=== PATIENT | female | born 1970 | race Caucasian/White ===

== ENCOUNTER 2018-04-19 06:28 | Emergency (ER) | payer BC ==
[2018-04-19 06:59] LABS: BILIRUBIN,URINE NEGATIVE (NEG); CLARITY,URINE CLEAR; COLOR,URINE YELLOW; GLUCOSE,URINE NEGATIVE (NEG); NITRITE,URINE NEGATIVE (NEG); PROTEIN,URINE NEGATIVE (NEG-TRACE); UROBILINOGEN,URINE 0.2 mg/dL (0.2 mg/dL)
[2018-04-19] MEDS: IV NORMAL SALINE 1000ML BAG 1,000 ML IV (07:10)
[2018-04-19] MEDS: KETOROLAC 30 MG/ML INJ. IV (07:10)
[2018-04-19] MEDS: METOCLOPRAMIDE HCL 10 MG/2 ML VIAL. IV (07:10)
[2018-04-19 07:14] LABS: BACTERIA,URINE FEW /HPF (0-FEW); RBC,URINE >40 /HPF (0-2); SQUAMOUS EPITHELIAL CELL,UR FEW /LPF
[2018-04-19 07:17] LABS: ADD MAN DIFF? NO
[2018-04-19 07:18] LABS: BASO % 0 % (0-3); EOS # 0.1 x10^3/uL (0.0-0.7); EOS % 3 % (0-3); HEMATOCRIT 39.3 % (36.0-47.0); HEMOGLOBIN 13.5 g/dL (12.0-15.5); LYMPH # 0.8 x10^3/uL (1.0-4.8); LYMPH % 23 % (24-48); MEAN CORPUSCULAR HEMOGLOBIN 31 pg (25-35); MEAN CORPUSCULAR HGB CONC 34 g/dL (31-37); MEAN CORPUSCULAR VOLUME 89 fL (79-100); MONO # 0.3 x10^3/uL (0.0-1.1); MONO % 8 % (0-9); NEUT # 2.4 x10^3uL (1.8-7.7); NEUT % 67 % (31-73); PLATELET COUNT 99 x10^3/uL (140-400); RED BLOOD COUNT 4.41 x10^6/uL (3.50-5.40); RED CELL DISTRIBUTION WIDTH 14.3 % (11.5-14.5); WHITE BLOOD COUNT 3.5 x10^3/uL (4.0-11.0)
[2018-04-19 07:26] LABS: ANION GAP 9 (6-14); BLOOD UREA NITROGEN 17 mg/dL (7-20); BUN/CREATININE RATIO 21 (6-20); CALCIUM 8.9 mg/dL (8.5-10.1); CARBON DIOXIDE 29 mmol/L (21-32); CHLORIDE 104 mmol/L (98-107); CREATININE 0.8 mg/dL (0.6-1.0); GFR 77.6; GLUCOSE 121 mg/dL (70-99); POTASSIUM 3.8 mmol/L (3.5-5.1); SODIUM 142 mmol/L (136-145)
[2018-04-19 07:32] LABS: ALBUMIN 4.3 g/dL (3.4-5.0); ALBUMIN/GLOBULIN RATIO 1.2 (1.0-1.7); ALK PHOS 97 U/L (46-116); ALT (SGPT) 27 U/L (14-59); AST (SGOT) 22 U/L (15-37); LIPASE 170 U/L (73-393); TOTAL BILIRUBIN 0.4 mg/dL (0.2-1.0); TOTAL PROTEIN 7.8 g/dL (6.4-8.2)
[2018-04-19 07:46] LABS: NEG OBC UR NEG; POS OBC UR POS; U PREG PATIENT NEGATIVE (NEG)
[2018-04-19] MEDS: TAMSULOSIN 0.4 MG CAP.ER.24H. PO (08:46)
== END 2018-04-19 08:57 | disposition home or self-care (01) ==
LOC: ER 06:28
DX: N20.0 Calculus of kidney (principal); R91.1 Solitary pulmonary nodule; Z87.891 Personal history of nicotine dependence
CPT/HCPCS: 36415; 74176; 80053; 81001; 81025; 83690; 83735; 85025; 87086; 96374; 96375; 99285-25; J1885; J2765; J7030

== ENCOUNTER 2018-07-27 17:59 | Emergency (ER) | payer BC ==
[~2018-07-27] VITALS: Ht 162.6 cm; Wt 59.9 kg
[~2018-07-27 17:59] MED LIST: HYDR-971 PO; ONDA4TAB7 PO; TAMS0.4C97 PO
[2018-07-27] MEDS ORDERED: fentaNYL PF VIAL 100 MCG/2 ML VIAL IV ONE (18:15)
[2018-07-27] MEDS ORDERED: ONDANSETRON PF 4 MG/2 ML VIAL. IV ONE (18:15)
[2018-07-27] MEDS ORDERED: IV NORMAL SALINE 1000ML BAG 1,000 ML IV ONE ×2 (18:15→20:15)
[2018-07-27] MEDS ORDERED: KETOROLAC 30 MG/ML VIAL. IV ONE (18:15)
--- NOTE | 2018-07-27 19:12 | PHYS DOC ---
Past Medical History Past Medical History: Kidney Stone Additional Past Medical Histor: BREAST CA: FINISHED CHEMO IN NOVEMBER Past Surgical History: Additional Past Surgical Histo: PORT LEFT CHEST, X 5, LITHOTRIPSY, RIGHT BREAST CA Alcohol Use: None Drug Use: None Adult General Chief Complaint Chief Complaint: FLANK PAIN HPI HPI Patient is a 47 year old female who presents with recent lithotripsy approximately 6 weeks ago. The patient had multiple renal calculi varying in size between 3 and 9 mm. She states that she never felt like she had enough sand output following lithotripsy. She states that she started developing severe left flank pain that is continued to worsen throughout the day. She did try taking ibuprofen at home with no relief. She has now started to develop nausea as well. She has had some chills but has not measured her temperature. Review of Systems Review of Systems Constitutional: Denies fever or chills [] Respiratory: Denies cough or shortness of breath [] Cardiovascular: No additional information not addressed in HPI [] GI: Denies abdominal pain, nausea, vomiting, bloody stools or diarrhea [] : See history of present illness Musculoskeletal: See history of present illness Integument: Denies rash or skin lesions [] Neurologic: Denies headache, focal weakness or sensory changes [] Endocrine: Denies polyuria or polydipsia [] All other systems were reviewed and found to be within normal limits, except as documented in this note. Current Medications Current Medications Current Medications Medications (Trade) Dose Ordered Sig/Florina Start Time Stop Time Status Last Admin Dose Admin Fentanyl Citrate (Fentanyl 2ml Vial) 50 mcg 1X ONCE 07/27/18 18:15 07/27/18 18:19 DC 07/27/18 18:57 50 MCG Ketorolac Tromethamine (Toradol 30mg Vial) 30 mg 1X ONCE 07/27/18 18:15 07/27/18 18:19 DC 07/27/18 18:57 30 MG Ondansetron HCl (Zofran) 4 mg 1X ONCE 07/27/18 18:15 07/27/18 18:19 DC 07/27/18 18:57 4 MG Sodium Chloride 1,000 ml @ 1,000 mls/hr 1X ONCE 07/27/18 20:15 07/27/18 21:05 DC 07/27/18 20:25 1,000 MLS/HR Allergies Allergies Allergies Coded Allergies Type Severity Reaction Last Updated Verified No Known Drug Allergies 04/19/18 No Physical Exam Physical Exam Constitutional: Well developed, well nourished, no acute distress, non-toxic appearance. [] Cardiovascular:Heart rate regular rhythm, no murmur [] Lungs & Thorax: Bilateral breath sounds clear to auscultation [] Abdomen: Bowel sounds normal, soft, no tenderness, no masses, no pulsatile masses. [] Skin: Warm, dry, no erythema, no rash. [] Back: No tenderness, left CVA tenderness. [] Neurologic: Alert and oriented X 3, normal motor function, normal sensory function, no focal deficits noted. [] Psychologic: Affect normal, judgement normal, mood normal. [] Current Patient Data Vital Signs Vital Signs Date Time Temp Pulse Resp B/P (MAP) Pulse Ox O2 Delivery O2 Flow Rate FiO2 07/27/18 21:02 98.2 84 14 128/76 (93) 98 Room Air 98.2 Lab Values Laboratory Tests Test 07/27/18 18:11 07/27/18 18:13 07/27/18 20:06 Urine Collection Type Unknown Urine Color Yellow Urine Clarity Clear Urine pH 7.0 Urine Specific Harmony 1.020 Urine Protein Negative mg/dL (NEG-TRACE) Urine Glucose (UA) Negative mg/dL (NEG) Urine Ketones (Stick) Trace mg/dL (NEG) Urine Blood Trace (NEG) Urine Nitrite Negative (NEG) Urine Bilirubin Negative (NEG) Urine Urobilinogen Dipstick 1.0 mg/dL (0.2 mg/dL) Urine Leukocyte Esterase Negative (NEG) Urine RBC 6-10 /HPF (0-2) Urine WBC 1-4 /HPF (0-4) Urine Squamous Epithelial Cells Few /LPF Urine Bacteria Few /HPF (0-FEW) Urine Mucus Mod /LPF POC Urine HCG, Qualitative Hcg negative (Negative) White Blood Count 3.7 x10^3/uL (4.0-11.0) L Red Blood Count 3.97 x10^6/uL (3.50-5.40) Hemoglobin 12.2 g/dL (12.0-15.5) Hematocrit 34.9 % (36.0-47.0) L Mean Corpuscular Volume 88 fL (79-100) Mean Corpuscular Hemoglobin 31 pg (25-35) Mean Corpuscular Hemoglobin Concent 35 g/dL (31-37) Red Cell Distribution Width 14.5 % (11.5-14.5) Platelet Count 92 x10^3/uL (140-400) L Neutrophils (%) (Auto) 70 % (31-73) Lymphocytes (%) (Auto) 20 % (24-48) L Monocytes (%) (Auto) 7 % (0-9) Eosinophils (%) (Auto) 3 % (0-3) Basophils (%) (Auto) 1 % (0-3) Neutrophils # (Auto) 2.6 x10^3uL (1.8-7.7) Lymphocytes # (Auto) 0.7 x10^3/uL (1.0-4.8) L Monocytes # (Auto) 0.3 x10^3/uL (0.0-1.1) Eosinophils # (Auto) 0.1 x10^3/uL (0.0-0.7) Basophils # (Auto) 0.0 x10^3/uL (0.0-0.2) Sodium Level 142 mmol/L (136-145) Potassium Level 3.6 mmol/L (3.5-5.1) Chloride Level 110 mmol/L (98-107) H Carbon Dioxide Level 25 mmol/L (21-32) Anion Gap 7 (6-14) Blood Urea Nitrogen 11 mg/dL (7-20) Creatinine 0.6 mg/dL (0.6-1.0) Estimated GFR (Cockcroft-Gault) 108.1 BUN/Creatinine Ratio 18 (6-20) Glucose Level 80 mg/dL (70-99) Calcium Level 7.5 mg/dL (8.5-10.1) L Total Bilirubin 0.3 mg/dL (0.2-1.0) Aspartate Amino Transferase (AST) 13 U/L (15-37) L Alanine Aminotransferase (ALT) 20 U/L (14-59) Alkaline Phosphatase 79 U/L (46-116) Total Protein 6.2 g/dL (6.4-8.2) L Albumin 3.4 g/dL (3.4-5.0) Albumin/Globulin Ratio 1.2 (1.0-1.7) Laboratory Tests 07/27/18 20:06 Laboratory Tests 07/27/18 20:06 EKG EKG [] Radiology/Procedures Radiology/Procedures []PATIENT: AMANDA WARD RACCOUNT: [id number]#: [id number] : 1970 LOCATION: ER AGE: 47 SEX: F EXAM STATUS: REG ER ORD. PHYSICIAN: VAHID ONEAL APRN REASON: recent lithotripsy with increased pain to the left flank PROCEDURE: CT ABDOMEN PELVIS WO CONTRAST Examination: CT ABDOMEN PELVIS WO CONTRAST History: INCREASED LEFT FLANK PAIN, EVAL KIDNEY STONE
HX; LITHOTRIPSY LEFT KIDNEY 06/2018 Comparison/Correlation: 04/19/2018 CT abdomen and pelvis without contrast Findings: Axial images of the abdomen and pelvis were obtained without contrast. Sagittal and coronal reformatted images were provided. Calcified involves the left lung base anteriorly. Unenhanced liver is normal. Calcified granulomas involve the spleen. Pancreas is normal. Adrenal glands are normal. There are no radiopaque right collecting system calculi. No right collecting system obstruction. Left renal inferior pole calyceal calculus measuring 0.5 cm diameter is present. At the left renal pelvis distally, there is a 0.8 cm diameter calculus. There is a calculus within the urinary bladder measuring 0.6 cm diameter. This is present at the ureterovesical junction. There is an additional calculus within the urinary bladder at the dependent aspect posteriorly adjacent to this larger calculus and it measures 0.3 cm diameter. Bony structures are grossly unremarkable. Impression: Left renal pelvis partially obstructive calculus. Calculus within the urinary bladder at the left ureterovesical junction. Additional urinary bladder calculus also seen. Nonobstructive left renal calculus. Electronically signed by: Aristides Garcia MD (07/27/2018 7:34 PM) [facility] DICTATED and SIGNED BY: AIRSTIDES GARCIA MD DATE: 07/27/181924 Course & Med Decision Making Course & Med Decision Making Pertinent Labs and Imaging studies reviewed. (See chart for details) []The patient was given pain and nausea medication in the emergency department. She received 2 L of fluid. She is being placed on Flomax, pain medication and nausea medication at home. She is to follow-up with her urologist if she is not improving in 3 days. If she worsens she is to return immediately to the emergency department. She is in agreement with this plan. Dragon Disclaimer Dragon Disclaimer This electronic medical record was generated, in whole or in part, using a voice recognition dictation system. Departure Departure Impression: Primary Impression: Renal calculi Disposition: 01 HOME, SELF-CARE Condition: STABLE Referrals: PAULA LOUISE MD (PCP) Patient Instructions: Diet for Kidney Stones, Kidney Stones Additional Instructions: Take the medication as prescribed. Follow-up with doctor and asked for further evaluation in 3 days. If worsening return to the emergency department. Do not drive or operate heavy machinery while taking this pain medication. Scripts Ondansetron (ZOFRAN ODT) 4 Mg Tab.rapdis 1 TAB SL Q8HRS, #15 TAB Prov: VAHID ONEAL APRN 07/27/18 Tamsulosin Hcl (FLOMAX) 0.4 Mg Cap.er.24h 1 CAP PO DAILY, #30 CAP 1 Refill Prov: VAHID ONEAL APRN 07/27/18 Oxycodone/Apap 5-325 (PERCOCET 5-325 MG TABLET) 1 Each Tablet 1 TAB PO PRN Q6HRS PRN for PAIN, #20 TAB 0 Refills Prov: VAHID ONEAL APRN 07/27/18 Attending Signature Attending Signature I have reviewed the PA/SM[employer] MACHINE [employer] OPERATOR's note and plan of care. I was available for consultation as needed during the patient's visit in the emergency department. I agree with the clinical impression, plan, and disposition. VAHID ONEAL APRN Jul 27, 2018 19:12 MADDY ROSA DO Aug 01, 2018 10:11
--- NOTE | 2018-07-27 19:37 | RAD ---
Examination: CT ABDOMEN PELVIS WO CONTRAST History: INCREASED LEFT FLANK PAIN, EVAL KIDNEY STONE
HX; LITHOTRIPSY LEFT KIDNEY 06/2018 Comparison/Correlation: 04/19/2018 CT abdomen and pelvis without contrast Findings: Axial images of the abdomen and pelvis were obtained without contrast. Sagittal and coronal reformatted images were provided. Calcified involves the left lung base anteriorly. Unenhanced liver is normal. Calcified granulomas involve the spleen. Pancreas is normal. Adrenal glands are normal. There are no radiopaque right collecting system calculi. No right collecting system obstruction. Left renal inferior pole calyceal calculus measuring 0.5 cm diameter is present. At the left renal pelvis distally, there is a 0.8 cm diameter calculus. There is a calculus within the urinary bladder measuring 0.6 cm diameter. This is present at the ureterovesical junction. There is an additional calculus within the urinary bladder at the dependent aspect posteriorly adjacent to this larger calculus and it measures 0.3 cm diameter. Bony structures are grossly unremarkable. Impression: Left renal pelvis partially obstructive calculus. Calculus within the urinary bladder at the left ureterovesical junction. Additional urinary bladder calculus also seen. Nonobstructive left renal calculus. Electronically signed by: Aristides Tomas MD (07/27/2018 7:34 PM) [facility]
[2018-07-27 19:55] LABS: BILIRUBIN,URINE NEGATIVE (NEG); CLARITY,URINE CLEAR; COLOR,URINE YELLOW; NITRITE,URINE NEGATIVE (NEG); PROTEIN,URINE NEGATIVE (NEG-TRACE)
[2018-07-27 20:06] LABS: BACTERIA,URINE FEW /HPF (0-FEW); SQUAMOUS EPITHELIAL CELL,UR FEW /LPF
[2018-07-27 20:14] LABS: BASO % 1 % (0-3); EOS # 0.1 x10^3/uL (0.0-0.7); EOS % 3 % (0-3); HEMATOCRIT 34.9 % (36.0-47.0); HEMOGLOBIN 12.2 g/dL (12.0-15.5); LYMPH # 0.7 x10^3/uL (1.0-4.8); LYMPH % 20 % (24-48); MEAN CORPUSCULAR HEMOGLOBIN 31 pg (25-35); MEAN CORPUSCULAR HGB CONC 35 g/dL (31-37); MEAN CORPUSCULAR VOLUME 88 fL (79-100); MONO # 0.3 x10^3/uL (0.0-1.1); MONO % 7 % (0-9); NEUT # 2.6 x10^3uL (1.8-7.7); NEUT % 70 % (31-73); PLATELET COUNT 92 x10^3/uL (140-400); RED BLOOD COUNT 3.97 x10^6/uL (3.50-5.40); RED CELL DISTRIBUTION WIDTH 14.5 % (11.5-14.5); WHITE BLOOD COUNT 3.7 x10^3/uL (4.0-11.0)
[2018-07-27 20:26] LABS: CALCIUM 7.5 mg/dL (8.5-10.1); CREATININE 0.6 mg/dL (0.6-1.0); GFR 108.1; POTASSIUM 3.6 mmol/L (3.5-5.1)
[2018-07-27 20:32] LABS: ALBUMIN 3.4 g/dL (3.4-5.0); ALBUMIN/GLOBULIN RATIO 1.2 (1.0-1.7); TOTAL BILIRUBIN 0.3 mg/dL (0.2-1.0); TOTAL PROTEIN 6.2 g/dL (6.4-8.2)
[2018-07-27 21:02] VITALS: BP 128/76
[2018-07-27] MEDS ORDERED: OXYC-323 PO (21:03)
[2018-07-27] MEDS ORDERED: ONDA4TAB10 SL (21:03)
[2018-07-27] MEDS ORDERED: TAMS0.4C97 PO (21:03)
== END 2018-07-27 21:05 | disposition home or self-care (01) ==
LOC: ER 17:59
DX: N20.0 Calculus of kidney (principal); Z98.890 Other specified postprocedural states
CPT/HCPCS: 36415; 74176; 80053; 81001; 81025; 85025; 96374; 96375; 99285; J1885; J2405; J3010; J7030